=== PATIENT | female | born 2005 | race Caucasian/White ===

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

== ENCOUNTER → 2023-01-22 | Outpatient (CLI) | payer BC, SELFPAY ==
[2023-01-22 18:40] LABS: Chlamydia Trachomatis by PCR Negative (Negative); Neisserai gonorrhoeae by PCR Negative (Negative); Probe Check PASS; Sample Adequacy Control PASS; Specimen Processing Control PASS
== END | disposition home or self-care (01) ==
LOC: LABSPEC 16:55
PROVIDERS: PCP Family Medicine; Referring Provider Nurse Practitioner Women's Health; Visit Provider Nurse Practitioner Women's Health
DX: Z11.3 Encounter for screening for infections with a predominantly sexual mode of transmission (principal)
CPT/HCPCS: 87491; 87591

== ENCOUNTER 2023-06-05 17:07 | Emergency (ER) | payer BC, SELFPAY ==
[2023-06-05 17:08] VITALS: BP 125/74; PULSE 83; RESP 16; TEMP 36.4; O2SAT 100; BMI 23.5
--- NOTE | 2023-06-05 18:19 | EKG12_ITS ---
Test Reason : CP Blood Pressure : / mmHG Vent. Rate : 089 BPM Atrial Rate : 089 BPM P-R Int : 136 ms QRS Dur : 076 ms QT Int : 350 ms P-R-T Axes : 060 056 058 degrees QTc Int : 425 ms Normal sinus rhythm Normal ECG Confirmed by KIRILL GARNER, DELL ([id number]), editor & co founder MISAEL DUONG ([id number]) on 06/07/2023 2:03:01 PM Referred By: EDE Confirmed By:DELL ROY MD
--- NOTE | 2023-06-05 18:21 | EDS_ITS ---
HPI History of Present Illness Chief Complaint: Chest Pain Informant: patient Narrative Narrative: Patient presents secondary to intermittent chest pain. She states for years she would have intermittent chest pain maybe twice a week. Over the last 3 weeks or so she feels it has been more constant. Last night pain woke her from sleep and that is the first time that has occurred. She states at that time a sharp pain in the upper right sternal border. She will sometimes feel short of breath with the chest pain. [facility] Medical History (Updated 06/05/23 @ 21:[address] 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 sexually active: No Smoking Status: Never smoker alcohol intake: never substance use type: does not use caffeine: Yes what type of physical activity do you participate in: none seatbelt use: always do you feel safe at home: Yes ROS ROS ED Constitutional Constitutional ED: Denies chills or fever(s) Eyes Eyes: Denies discharge from eye(s) ENT ENT ED: Denies discharge from eye(s), rhinorrhea or sore throat Cardiovascular Cardiovascular: Reports chest pain; Denies palpitations Respiratory/Chest Respiratory/Chest: Reports dyspnea; Denies cough Gastrointestinal Gastrointestinal: Denies abdominal pain, nausea or vomiting Genitourinary Genitourinary ED: Denies dysuria Musculoskeletal Musculoskeletal: Denies back pain or extremity pain Integumentary Denies Abrasions or rash Neurologic Neurologic: Denies headache(s) or weakness Psychiatric Psychiatric: Denies anxiety or depression Allergic/Immunologic Allergic/Immunologic ED: Denies lip swelling or urticaria EXAM Physical Exam Const Vital Signs: 06/05/23 17:08 06/05/23 17:32 Temperature 97.5 F L Temperature Source Temporal Pulse Rate 83 Respiratory Rate 16 Respiratory Effort Normal Non-Labored Blood Pressure 125/74 H Blood Pressure Mean 91 Pulse Ox 100 Oxygen Delivery Method Room Air Positive well nourished and well developed General Appearance ED: well developed HEENT Reports normocephalic and head/scalp atraumatic Eyes PERRL and EOMs intact bilaterally Neck supple Chest Wall inspection of chest normal and palpation of chest normal Resp normal respiratory effort and clear to auscultation bilaterally Cardio regular rate and regular rhythm GI normal to inspection, nondistended, normoactive bowel sounds Palpation: soft Extremity normal to inspection Neuro oriented x3 and no sensory deficits noted Sensorium / Orientation: alert Motor Exam: strength 5/5 throughout Psych mental status grossly normal Skin no rashes or lesions noted Heart Score History: Slightly/Non-Suspicious ECG: Normal Age: </= 45 years Risk Factors: No Risk Factors Troponin: </= Normal Limit Score: 0 MDM MDM MDM Narrative Medical decision making narrative: Patient placed on potline monitor. IV line established. Labwork obtained to evaluate for leukocytosis, anemia, and electrolyte derangement. Chest x-ray obtained to evaluate for acute lung pathology, cardiac size, or mediastinal ab normality. History & Record Review Discussion w/independent historian: Patient and Family Lab Data Attestation: I reviewed the patient's lab results. Labs: Laboratory Results - last 24 hr 06/05/23 18:35 WBC 9.0 RBC 4.57 Hgb 13.6 Hct 41.0 MCV 89.7 MCH 29.8 MCHC 33.2 RDW Std Deviation 38.2 RDW Coeff of Kushal 11.8 Plt Count 270 MPV 9.9 Immature Gran % (Auto) 0.200 Neut % (Auto) 58.9 Lymph % (Auto) 34.4 [place] % (Auto) 5.2 Eos % (Auto) 0.7 Baso % (Auto) 0.6 Absolute Neuts (auto) 5.3 Absolute Lymphs (auto) 3.10 Nucleated RBC % 0 D-Dimer Quant (PE/DVT) 0.52 H* Sodium 138 Potassium 3.7 Chloride 107 Carbon Dioxide 23.0 Anion Gap 8 BUN 9 Creatinine 0.76 Estim Creat Clear Calc 94.17 Est GFR (MDRD) Af Amer 125 Est GFR (MDRD) Non-Af 104 BUN/Creatinine Ratio 11.9 Glucose 76 Calcium 9.4 Troponin I High Sens 4 Radiography Chest X-Ray - ED: 1 View, Read by ED Physician, Normal, Heart, Lungs and Mediastinum Diagnostic Testing: Clinical Impression(s) from Imaging Studies Chest X-Ray 06/05/23 18:33 IMPRESSION: Normal x-ray examination of the chest. Electronically Signed: Vicente Franz MD at 18:57 EDT , Chest CTA 06/05/23 19:17 IMPRESSION: Retroesophageal aberrant origin right subclavian artery. Please correlate clinically. Otherwise no acute disease. Electronically Signed: Vicente Franz MD at 20:36 EDT Reading Location ID and State: [id number] / [place] Tel , Service support , EKG Initial EKG: Attestation: I personally reviewed and interpreted this EKG as follows: Interpretation: Sinus Rhythm (Sinus 89 with no acute ischemia.) Treatment and Re-Evaluation :: CBC reveals normal white count at 9.0 with a hemoglobin of 13.6. Chemistry studies are unremarkable. Troponin is normal at 4. D-dimer is slightly elevated at 0.52. Portable chest x-ray per my interpretation is no acute abnormalities. Radiology interpretation is reviewed and agrees. EKG reveals sinus rhythm with no acute ischemia. Given her elevated D-dimer patient was sent for CTA of the chest. This reveals an anomalous origin of the right subclavian artery, but no acute finding is noted. No evidence of PE. Test results discussed with patient and family at bedside. Return instructions are given. Discharge Plan Triage Chief Complaint: Chest Pain ED Provider: Rowan Vences Dx/Rx/DC Orders Clinical Impression: Atypical chest pain Instructions: ED Chest Pain, Uncertain Cause Prescriptions: No Action levonorgestrel-ethinyl estrad [Aviane] 0.1-20 mg-mcg tablet 1 tab PO QDAY Qty: 84 4RF Primary Care Provider: Sinan Pedroza Referrals: Sinan Pedroza MD [Primary Care Provider] - 1-2 Weeks Disposition Disposition: Home, Self Care
--- NOTE | 2023-06-05 18:33 | RAD_ITS ---
STUDY: X-RAY CHEST REASON FOR EXAM: Female, 17 years old. chest pain TECHNIQUE: Single frontal view of the chest. COMPARISON: None. FINDINGS: The lungs are clear and expanded. There is no demonstrated pleural abnormality. Normal size heart. Normal mediastinum and rupali. Normal visualized pulmonary arteries. Normal visualized aortic arch and descending thoracic aorta. Normal visualized thoracic spine. Normal visualized ribs, clavicles, and shoulders. There is no demonstrated abnormality of the visualized soft tissue structures of the upper abdomen. RAD/Chest 1 View (Portable) IMPRESSION: Normal x-ray examination of the chest. Electronically Signed: Vicente Franz MD at 18:57 EDT ,
[2023-06-05 18:45] LABS: Absolute Neutrophil Count 5.3 X10^3/uL (2.0-7.7); Basophil# 0.05 X10^3/uL; Basophil% 0.6 % (0-1); Eosinophil# 0.06 X10^3/uL; Eosinophils% 0.7 % (0-5); Hemoglobin 13.6 g/dL (12.0-15.0); Lymphocyte % 34.4 % (19-41); Mean Corp Hgb Conc 33.2 g/dL (32-36); Mean Corpuscular Hgb 29.8 pg (27.0-32.0); Mean Corpuscular Volume 89.7 fL (81-99); Mean Platelet Vol. 9.9 fl (6.2-12.0); Monocyte# 0.47 X10^3/uL; Monocyte% 5.2 % (0-10); NRBC Flagged by Analyzer 0 % (0-5); Neutrophil # 5.32 X10^3/uL (2.7-7.7); Neutrophil % 58.9 % (47-70); Platelet Count 270 K/mm3 (150-450); RBC Distribution Width CV 11.8 % (11.6-14.6); RBC Distribution Width SD 38.2 fl (35.1-43.9); Red Blood Count 4.57 M/mm3 (4.2-5.4)
[2023-06-05 19:04] LABS: D-Dimer Quantitative (DVT/PE) 0.52 FEU/ug/m (0.27-0.49)
[2023-06-05 19:14] LABS: Anion Gap 8 (5-15); BUN 9 mg/dL (7-18); BUN/Creat Ratio 11.9 RATIO (10-20); Calcium,Total 9.4 mg/dL (8.5-10.1); Chloride 107 mmol/L (98-107); Creatinine, Serum 0.76 mg/dL (0.55-1.02); EST Glomerular Filtration Rate 104 mL/min (>60); Est Glom Filt Rate - Afr Amer 125 mL/min (>60); Estimated Creatinine Clearance 94.17 ml/min; Glucose 76 mg/dL (74-106); Potassium 3.7 mmol/L (3.5-5.1); Sodium Level 138 mmol/L (136-145); Troponin-I HS 4 pg/mL (3.0-54.0)
--- NOTE | 2023-06-05 19:17 | CT_ITS ---
STUDY: CTA CHEST REASON FOR EXAM: Female, 17 years old. CP, elevated d-dimer RADIATION DOSAGE (If Supplied By Facility): CTDIvol = ( 3.53 ) mGy, DLP = ( 146.29 ) mGycm TECHNIQUE: The examination was performed with the intravenous administration of IV 100mL Isovue-370. Post-processing of the angiographic images was performed, with multiplanar reformation and 3D reconstruction. Individualized dose optimization techniques were used for this CT. COMPARISON: Chest x-ray from today. FINDINGS: Retroesophageal aberrant origin right subclavian artery. Normal enhancement of the main pulmonary artery and right and left pulmonary arteries. Normal enhancement of the bilateral peripheral pulmonary arteries. There is no demonstrated pulmonary embolism. Normal thoracic aorta and visualized great vessels. There is no demonstrated aortic dissection. Normal heart and pericardium. Normal mediastinum. Normal hilar regions. Normal visualized trachea and bronchi. The lungs are well expanded. Normal pulmonary parenchyma. Normal pleura. Normal chest wall structures. Normal osseous structures. Normal visualized upper abdomen. CT/CTA Chest W/WO Contrast IMPRESSION: Retroesophageal aberrant origin right subclavian artery. Please correlate clinically. Otherwise no acute disease. Electronically Signed: Vicente Franz MD at 20:36 EDT ,
== END 2023-06-05 21:21 | disposition home or self-care (01) ==
PROVIDERS: Emergency Provider Emergency Medicine; PCP Family Medicine; Visit Provider Emergency Medicine
DX: R07.89 Other chest pain (principal); Z79.3 Long term (current) use of hormonal contraceptives
CPT/HCPCS: 71045; 71275; 80048; 84484; 85025; 85379; 93005; 99284; Q9967; A4216

== ENCOUNTER 2023-06-07 19:52 | Emergency (ER) | payer BC, SELFPAY ==
[2023-06-07 19:53] VITALS: BP 139/74; PULSE 87; RESP 18; TEMP 36.6; O2SAT 100; BMI 23.6
--- NOTE | 2023-06-07 20:38 | US_ITS ---
STUDY: VENOUS DOPPLER ULTRASOUND - RIGHT LOWER EXTREMITY REASON FOR EXAM: Female, 17 years old. PAIN RIGHT LEG TECHNIQUE: Ultrasound evaluation of the deep vein system to include chapman-scale imaging and compression was performed. Chapman-scale imaging and Doppler sonographic evaluation, including duplex spectral analysis and qualitative color flow sonography, was performed. COMPARISON: None. FINDINGS: Common Femoral Vein: Normal compression, spontaneity and augmentation. Normal color Doppler. Common Femoral Vein/Greater Saphenous Junction: Normal compression, spontaneity and augmentation. Normal color Doppler. Deep Femoral Vein: Normal compression, spontaneity and augmentation. Normal color Doppler. Femoral Proximal: Normal compression, spontaneity and augmentation. Normal color Doppler. Femoral Middle: Normal compression, spontaneity and augmentation. Normal color Doppler. Femoral Distal: Normal compression, spontaneity and augmentation. Normal color Doppler. Popliteal Vein: Normal compression, spontaneity and augmentation. Normal color Doppler. Posterior Tibial Vein: Normal compression, spontaneity and augmentation. Normal color Doppler. Peroneal Vein: Normal compression, spontaneity and augmentation. Normal color Doppler. There is no demonstrated deep venous thrombosis. US/Venous Duplex Imag/Limited/Uni IMPRESSION: Normal venous Doppler ultrasound of the lower extremity. Electronically Signed: Willam Farley MD at 21:56 EDT ,
--- NOTE | 2023-06-07 20:48 | ED.VIS.LOWEX ---
HPI History of Present Illness Chief Complaint: Lower Extremity Injury Informant: patient Narrative Narrative: Presents with some soreness or cramping in the posterior calf. Patient was just here couple days ago. Fully evaluated for pulmonary embolus. She has a mildly elevated D-dimer. Other blood work and CTA were negative. She now comes in because she has noticed a little cramping in the right posterior leg. Patient is on control. But she has had no recent travel surgery immobilization personal or first-degree relative history of DVT or PE. Sounds like she had a grandmother may have had blood clots. No other trauma or injury to the leg or other cause that she can think of. No other areas of cramps. She is no longer having chest pain or dyspnea. No coughing. [facility] Medical History (Updated 06/07/23 @ 21:[address] 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 Some specific details below. Constitutional: No recent fevers or chills. EYE: No discharge, visual complaints, or pain. ENT: No difficulty swallowing. No swelling. No pain. No reflux symptoms. CV: Chest symptoms now. She was seen recently for this. Respiratory: Coughing or dyspnea. GI: No abdominal pain. No nausea vomiting diarrhea. No blood in stool. : No frequency dysuria or hematuria. Musculoskeletal: No recent trauma. Straight present illness. There has been no asymmetry. Skin: No rash. Nondiaphoretic. Neuro: No weakness or numbness. Endocrine: No polyuria or polydipsia. EXAM Physical Exam Narrative Exam Narrative: CONSTITUTIONAL: Patient is nontoxic in appearance. The patient looks comfortable. Work of breathing looks normal. HEENT: No notable trauma. Mucous membranes moist. No sinus tenderness. No indication of pain with swallowing. EYES: No conjunctival injection. No proptosis. NECK:No JVD. No stridor. CARDIOVASCULAR: Regular rate at about 70. Regular rhythm. No notable murmur. No JVD. RESPIRATORY: No respiratory distress. Breathing is unlabored. No pain with a deep breath. GASTROINTESTINAL: Not distended. Bowel sounds are normal. No tenderness. GENITOURINARY: No tenderness over the bladder. No CVA tenderness. MUSCULOSKELETAL: Atraumatic. No peripheral edema. No cord. No tenderness along the deep venous system. No asymmetry. No distended veins. I do not notice any difference side to side. I do not feel or see any abnormality. There is no redness or sign of infection. NEUROLOGICAL: Patient is alert and appropriate. No focal deficit noted. SKIN: No noted rashes. No diaphoresis. PSYCHIATRIC: Patient is calm. Mood is appropriate. Const Vital Signs: 06/07/23 19:53 Temperature 97.9 F Temperature Source Temporal Pulse Rate 87 Respiratory Rate 18 Blood Pressure 139/74 H Blood Pressure Mean 95 Pulse Ox 100 MDM MDM MDM Narrative Medical decision making narrative: Radiology called me. Patient's ultrasound is negative. With her negative work-up for PE and negative ultrasound and recent blood work I think she is okay for discharge. This may be cramping due to multiple other sources. If she gets further pain cramping swelling she may need repeat ultrasound in a week or so. Discharge Plan Triage Chief Complaint: Lower Extremity Injury ED Provider: Ranjit Mckenzie Dx/Rx/DC Orders Clinical Impression: Right calf pain Instructions: ED Myalgias Prescriptions: No Action levonorgestrel-ethinyl estrad [Aviane] 0.1-20 mg-mcg tablet 1 tab PO QDAY Qty: 84 4RF Primary Care Provider: Sinan Pedroza Referrals: Sinan Pedroza MD [Primary Care Provider] - 3-5 Days if not improving Activity Restrictions/Additional Instructions: Ice, rest, elevation, Tylenol or Motrin for soreness. Disposition Disposition: Home, Self Care
== END 2023-06-07 21:40 | disposition home or self-care (01) ==
PROVIDERS: Emergency Provider Emergency Medicine; PCP Family Medicine; Visit Provider Emergency Medicine
DX: M79.661 Pain in right lower leg (principal)
CPT/HCPCS: 93971; 99282

== ENCOUNTER → 2023-09-20 | Outpatient (CLI) | payer BC, SELFPAY ==
[2023-09-20 18:07] LABS: Vitamin D,25 Hydroxy 15.2 ng/mL
[2023-09-20 18:24] LABS: T4 Free Direct 1.18 ng/dL (0.76-1.46)
== END | disposition home or self-care (01) ==
LOC: MFPLAB 15:32
PROVIDERS: PCP Family Medicine; Visit Provider Family Medicine
DX: R00.2 Palpitations (principal); F41.1 Generalized anxiety disorder
CPT/HCPCS: 36415; 82306; 84439; 84443

== ENCOUNTER → 2024-01-04 | Outpatient (CLI) | payer BC, SELFPAY ==
[2024-01-04 13:08] LABS: Vitamin D,25 Hydroxy 90.9 ng/mL
== END | disposition home or self-care (01) ==
PROVIDERS: PCP Family Medicine; Visit Provider Family Medicine
DX: E55.9 Vitamin D deficiency, unspecified (principal)
CPT/HCPCS: 36415; 82306

== ENCOUNTER 2024-09-17 19:35 | Emergency (ER) | payer BC, SELFPAY ==
[2024-09-17 19:36] VITALS: BP 125/87; PULSE 84; RESP 15; TEMP 36.3; O2SAT 100; BMI 24.7
[2024-09-17 20:27] LABS: Absolute Lymphocyte Count 2.27 X10^3/uL (0.83-4.51); Absolute Neutrophil Count 10.8 X10^3/uL (2.0-7.7); Basophil# 0.04 X10^3/uL; Basophil% 0.3 % (0-1); Eosinophil# 0.04 X10^3/uL; Eosinophils% 0.3 % (0-5); Hemoglobin 14.7 g/dL (12.0-15.0); Lymphocyte # 2.27 X10^3/ul (0.83-4.51); Lymphocyte % 16.4 % (19-41); Mean Corp Hgb Conc 34.2 g/dL (32-36); Mean Corpuscular Hgb 29.6 pg (27.0-32.0); Mean Corpuscular Volume 86.5 fL (81-99); Mean Platelet Vol. 9.5 fl (6.2-12.0); Monocyte# 0.61 X10^3/uL; Monocyte% 4.4 % (0-10); NRBC Flagged by Analyzer 0 % (0-5); Neutrophil # 10.81 X10^3/uL (2.7-7.7); Neutrophil % 78.3 % (47-70); Platelet Count 381 K/mm3 (150-450); RBC Distribution Width CV 11.9 % (11.6-14.6); RBC Distribution Width SD 37.6 fl (35.1-43.9); Red Blood Count 4.97 M/mm3 (4.2-5.4); White Blood Count 13.8 K/mm3 (4.4-11.0)
[2024-09-17 20:41] LABS: Internal QC Validated? YES +Cl - CLEAR BKGD; Pregnancy, Serum, hCG Quali. NEGATIVE Negative
[2024-09-17 20:49] LABS: ALB/GLOB Ratio 0.8 RATIO (0.9-2.4); AST(SGOT) 30 U/L (15-37); Alanine Aminotransfer ALT/SGPT 23 U/L (13-56); Albumin, Serum 4.1 g/dL (3.2-5.0); Alkaline Phosphatase 113 U/L (45-117); Anion Gap 6 (5-15); BUN 11 mg/dL (7-18); BUN/Creat Ratio 13.6 RATIO (10-20); Chloride 103 mmol/L (98-107); Creatinine, Serum 0.81 mg/dL (0.55-1.02); EST Glomerular Filtration Rate 95 mL/min (>60); Est Glom Filt Rate - Afr Amer 115 mL/min (>60); Estimated Creatinine Clearance 95.53 ml/min; Globulin 4.9 g/dL (2.2-4.2); Glucose 105 mg/dL (74-106); Potassium 4.6 mmol/L (3.5-5.1); Sodium Level 136 mmol/L (136-145)
[2024-09-17 21:19] LABS: Mucous, Urine 0 SEEN /hpf (<or=2+)
[2024-09-17 21:31] LABS: Color, Urine Yellow (Yellow); Glucose, Dipstick Normal (Normal); Ketone-Dipstick Negative (Negative); Leukocyte Esterase-Dipstick Negative /ul (Negative); Nitrite-Dipstick Negative (Negative); Occult Blood-Urine 10 /ul (Negative); Protein-Dipstick Negative (Negative); Specific Gravity, Urine 1.015 (1.002-1.030); Urine Bilirubin Dipstick Negative (Negative); Urine Clarity Clear (Clear); Urine Urobilinogen Normal (Normal); Urine pH 6.5 (5.0 - 8.0)
[2024-09-17 21:46] VITALS: BP 132/77; PULSE 85; RESP 18; O2SAT 99
[2024-09-17 21:50] LABS: Bacteria RARE /hpf (None Seen); Red Blood Cells-Urine 0-5 SEEN /hpf (0-5); Squamous Epithelial Cells - UA 0-5 SEEN /hpf (5-10); White Blood Cells 0-5 SEEN /hpf (0-5)
--- NOTE | 2024-09-17 22:06 | EDS_ITS ---
HPI HPI - GI History of Present Illness Chief Complaint: Abd Pain Informant: patient and parent Narrative Narrative: Presents here with mom and sister evaluation waxing waning epigastric pain for the last 5 days. Has not had a bowel movement since symptoms started. Intermittent nausea when pain occurs. States it will come and go symptoms with sometimes improved with food. Denies any recent NSAID use. No abdominal surgeries. Saw PCP today started on omeprazole. Took 1 today. Had a flare this evening. No fevers. Currently symptom subsided. Prior similar symptoms: No PFSH PFSH Medical History (Updated 09/17/24 @ 23:[address] Juan Manuel Ayon DO) Vitamin D deficiency Home Medications ?Medication ?Instructions ?Recorded ?Last Taken ?Type cholecalciferol (vitamin D3) 50 50 mcg PO DAILY 02/12/24 Unknown History mcg (2,000 unit) capsule escitalopram oxalate 10 mg tablet 10 mg PO DAILY 02/12/24 Unknown History (Lexapro) levonorgestrel-ethinyl estradiol 1 tab PO QDAY #84 tabs 02/12/24 Unknown Rx 0.1 mg-20 mcg tablet (Aviane) sucralfate 1 gram tablet (Carafate) 1 g PO Q6H #60 tabs 09/17/24 Unknown Rx Allergy/AdvReac Type Severity Reaction Status Date / Time No Known Allergies Allergy Verified 09/17/24 19:36 Family History Grandmother Graves disease Grandfather COPD (chronic obstructive pulmonary disease) Social History adopted: No household members: family housing: house 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 sexually active: No Smoking Status: Never smoker alcohol intake: never substance use type: does not use caffeine: Yes what type of physical activity do you participate in: none seatbelt use: always do you feel safe at home: Yes ROS ROS ED Constitutional Constitutional ED: Denies chills, fever(s) or sweats ENT ENT ED: Denies sore throat Cardiovascular Cardiovascular: Denies chest pain, leg edema, palpitations or racing heartbeat Respiratory/Chest Respiratory/Chest: Denies cough, dyspnea or dyspnea on exertion Gastrointestinal Gastrointestinal: Reports abdominal pain; Denies diarrhea, nausea or vomiting Genitourinary Genitourinary ED: Denies dysuria, hematuria or urinary frequency Musculoskeletal Musculoskeletal: Denies back pain, extremity pain or neck pain Integumentary Denies rash or wounds Neurologic Neurologic: Denies headache(s), paresthesias or weakness EXAM Physical Exam Const Vital Signs: 09/17/24 19:36 09/17/24 21:46 09/17/24 23:14 Temperature 97.4 F L Temperature Source Temporal Pulse Rate 84 85 78 Respiratory Rate 15 18 18 Blood Pressure 125/87 H 132/77 H 122/87 H Blood Pressure Mean 99 95 99 Pulse Ox 100 99 100 Oxygen Delivery Method Room Air Room Air 09/17/24 23:16 09/18/24 00:00 Temperature Temperature Source Pulse Rate Respiratory Rate 18 Blood Pressure 113/81 H Blood Pressure Mean 90 Pulse Ox 100 99 Oxygen Delivery Method Positive well nourished and well developed General Appearance ED: well developed and NAD HEENT Reports moist mucous membranes normocephalic and atraumatic Eyes General Eye ED: Yes normal appearance of both eyes Neck full ROM Chest Wall Chest: Negative for tenderness Resp normal respiratory effort and normal air movement Effort and Inspection: symmetric chest movement; Negative for respiratory distress Cardio regular rate, regular rhythm and no murmurs Peripheral Pulses: pulses 2+ throughout GI normal to inspection, nondistended, normoactive bowel sounds GI Narrative: Minimal epigastric tenderness. Negative Mcdaniel McBurney's tenderness. No guarding or rebound. Palpation: Negative for guarding or rebound tenderness present Extremity normal to inspection General Extremety ED: Negative for edema or tenderness General Extremity: Negative for edema Neuro oriented x3 and no sensory deficits noted Sensorium / Orientation: awake and alert Skin no rashes or lesions noted and no wounds MDM MDM MDM Narrative Medical decision making narrative: Interventions / MDM: Differential diagnosis: Gastritis, epigastric abdominal pain Diagnosis considered but do not suspect: Pneumoperitoneum however CT negative. My EKG interpretation: N/A Imaging independently reviewed and interpreted by myself: CT abdomen pelvis IV contrast: Constipation, no acute process also read by radiology. External documents reviewed: N/A Test considered but not ordered:N/A ED course: Patient presenting gastritis symptoms, nonsurgical abdomen. Abdominal labs were obtained, GI cocktail, IV Pepcid. 2245: hCG and urine negative. Labs white count 13.8 lipase normal liver enzymes normal normal electrolytes. She reported no improvement with the GI cocktail. Risk and benefits with CT scan. She wishes to move forward with this. CT negative except for constipation signs. No pneumoperitoneum. Patient r eassured on the findings. Carafate was added to her omeprazole. She has MiraLAX at home. Discussed if she wants bowel movement take 1 capful in full glass water every hour until bowel movement. Re-evaluation: stable Disposition discussed with patient/family/significant other: Patient and mother Case discussed with consulting clinician: N/A This note was generated with [employer] dictation software. It may contain incorrect words, spelling, and punctuation that were not noted in checking the note before signing. Lab Data Attestation: I reviewed the patient's lab results. Labs: Laboratory Results - last 24 hr 09/17/24 09/17/24 20:05 21:10 WBC 13.8 H RBC 4.97 Hgb 14.7 Hct 43.0 MCV 86.5 MCH 29.6 MCHC 34.2 RDW Std Deviation 37.6 RDW Coeff of Kushal 11.9 Plt Count 381 MPV 9.5 Immature Gran % (Auto) 0.300 Neut % (Auto) 78.3 H Lymph % (Auto) 16.4 L Garrard % (Auto) 4.4 Eos % (Auto) 0.3 Baso % (Auto) 0.3 Absolute Neuts (auto) 10.8 H Absolute Lymphs (auto) 2.27 Nucleated RBC % 0 Sodium 136 Potassium 4.6 Chloride 103 Carbon Dioxide 27.0 Anion Gap 6 BUN 11 Creatinine 0.81 Estim Creat Clear Calc 95.53 Est GFR (MDRD) Af Amer 115 Est GFR (MDRD) Non-Af 95 BUN/Creatinine Ratio 13.6 Glucose 105 Calcium 10.0 Total Bilirubin 0.50 AST 30 ALT 23 Alkaline Phosphatase 113 Total Protein 9.0 H Albumin 4.1 Globulin 4.9 H Albumin/Globulin Ratio 0.8 L Lipase 30 Serum , Qual NEGATIVE Urine Color Yellow Urine Clarity Clear Urine pH 6.5 Ur Specific Tabiona 1.015 Urine Protein Negative Urine Glucose (UA) Normal Urine Ketones Negative Urine Occult Blood 10 H Urine Nitrite Negative Urine Bilirubin Negative Urine Urobilinogen Normal Ur Leukocyte Esterase Negative Urine RBC 0-5 SEEN Urine WBC 0-5 SEEN Ur Squamous Epith Cells 0-5 SEEN Urine Bacteria RARE Urine Mucus 0 SEEN Radiography Diagnostic Testing: Clinical Impression(s) from Imaging Studies Abdomen/Pelvis CT 09/17/24 22:41 IMPRESSION: No acute abnormalities. Dense colonic stool which can suggest constipation. One or more dose reduction techniques were used (e.g., Automated exposure control, adjustment of the mA and/or kV according to patient size, use of iterative reconstruction technique). Reading Location: [facility] Discharge Plan Triage Chief Complaint: Abd Pain ED Provider: Juan Manuel Ayon Dx/Rx/DC Orders Clinical Impression: Gastritis, Constipation Prescriptions: New sucralfate [Carafate] 1 gram tablet 1 g PO Q6H Qty: 60 0RF No Action escitalopram oxalate [Lexapro] 10 mg tablet 10 mg PO DAILY cholecalciferol (vitamin D3) 50 mcg (2,000 unit) capsule 50 mcg PO DAILY levonorgestrel-ethinyl estrad [Aviane] 0.1-20 mg-mcg tablet 1 tab PO QDAY Qty: 84 4RF Primary Care Provider: Victor Hugo Pedroza Referrals: Victor Hugo Pedroza MD [Primary Care Provider] - Michael Lovelace DO [Med Staff - Active Staff] - 1-2 Weeks Activity Restrictions/Additional Instructions: Labs normal white count 13.8. CT scan abdomen pelvis constipation findings no other acute findings. Continue omeprazole. Take Carafate as prescribed. For bowel movement continue MiraLAX and drink up to 1 cup every hour to have a bowel movement. Follow-up with GI. Print Language: Upper Sorbian Disposition Disposition: Home, Self Care Discharge Date/Time: 09/18/24 00:20
[2024-09-17] MEDS: Mag Hydrox/Al Hydrox/Simeth 30 ML UDC PO (22:07)
[2024-09-17] MEDS: Lidocaine 2% Viscous15 ML UDC 15 ML PO (22:07)
[2024-09-17 22:21] LABS: Lipase 30 U/L (13-75)
[2024-09-17] MEDS: Famotidine 200 MG/20 ML MDV 20 MG in 0.9% Normal Saline (Pres. free 8 ML 300 MG IV (22:32)
--- NOTE | 2024-09-17 22:41 | CT_ITS ---
PROCEDURE: ABDOMEN/PELVIS W IV CONT ONLY REASON FOR EXAM: Nausea; no bowel movement. TECHNIQUE: Abdomen and pelvis CT with intravenous contrast. COMPARISON: None. FINDINGS: Lung bases: Clear Liver: Unremarkable. Gallbladder: Unremarkable. Spleen: Unremarkable. Pancreas: Unremarkable. Adrenals: Unremarkable. Kidneys: Unremarkable. Bladder: Unremarkable. Reproductive Organs: Unremarkable. Bowel: Dense colonic stool. Normal caliber small bowel. Appendix: Normal. Lymph nodes: No suspicious lymph node enlargement. Vasculature: Major vascular structures are unremarkable. Peritoneum / Retroperitoneum: No ascites. No free air. Bones: Unremarkable. CT/Abdomen/Pelvis W IV Cont ONLY IMPRESSION: No acute abnormalities. Dense colonic stool which can suggest constipation. One or more dose reduction techniques were used (e.g., Automated exposure contr ol, adjustment of the mA and/or kV according to patient size, use of iterative reconstruction technique). Reading Location: [id number]
[2024-09-17 23:14] VITALS: BP 122/87; PULSE 78; RESP 18; O2SAT 100
[2024-09-17 23:16] VITALS: O2SAT 100
[2024-09-18] VITALS: BP 113/81; RESP 18; O2SAT 99
== END 2024-09-18 00:20 | disposition home or self-care (01) ==
PROVIDERS: Emergency Provider Emergency Medicine; PCP Family Medicine; Visit Provider Emergency Medicine
DX: K29.70 Gastritis, unspecified, without bleeding (principal); K59.00 Constipation, unspecified
CPT/HCPCS: 74177; 80053; 81001; 83690; 84703; 85025; 99283; Q9967; A4216

== ENCOUNTER → 2025-02-26 | Outpatient (CLI) | payer BC, SELFPAY | END | disposition home or self-care (01) | LOC: LABSPEC 15:46 | PROVIDERS: PCP Family Medicine; Visit Provider Nurse Practitioner Women's Health | DX: Z12.4 Encounter for screening for malignant neoplasm of cervix (principal) | CPT/HCPCS: 88175; G0145 ==

== ENCOUNTER → 2025-04-16 | Outpatient (CLI) | payer BC, SELFPAY | END | disposition home or self-care (01) | LOC: LABSPEC 15:37 | PROVIDERS: PCP Family Medicine; Referring Provider Physician Assistant Surgical; Visit Provider Physician Assistant Surgical | DX: R82.90 Unspecified abnormal findings in urine (principal) | CPT/HCPCS: 87086; 87088 ==